=== PATIENT | female | born 1990 | race Caucasian/White ===

== ENCOUNTER → 2019-01-15 | Outpatient (CLI) | payer OTHER ==
--- NOTE | 2019-01-15 16:12 | RADIOLOGY REPORT (SQ) ---
EXAM DESCRIPTION: SCOLIOSIS SERIES COMPLETED DATE/TIME: 01/15/2019 2:27 pm REASON FOR STUDY: HISTORY OF SCOLIOSIS Z87.39 PERSONAL HISTORY OF DISEASES OF THE MS SYS AND CONN T COMPARISON: None. NUMBER OF VIEWS: One view. TECHNIQUE: Standing AP exam of the thoracolumbar spine with measurement of the OWENS angles. LIMITATIONS: None. FINDINGS: GENERALIZED BONY FINDINGS: No anomalies. No worrisome bone lesions. THORACIC SPINE: ANGULATION: None. LUMBAR SPINE: APEX: L3 ANGULATION: Curvature convex to the left. DEGREES: 9 CHANGE: Not applicable - no prior studies. OTHER: No other significant findings. IMPRESSION: SCOLIOSIS WITH MEASUREMENTS ABOVE. TECHNICAL DOCUMENTATION: JOB ID: [id number] [employer]- All Rights Reserved Reading location - IP/workstation name: [email or web address]
== END ==
LOC: OD 14:11
PROVIDERS: ATTEND Nurse Practitioner Family
DX: M41.86 Other forms of scoliosis, lumbar region (principal)
CPT/HCPCS: 72082